=== PATIENT | male | born 1980 | race African-American/Black ===

== ENCOUNTER 2016-08-15 02:11 | Emergency (ER) | payer BC ==
[~2016-08-15 02:11] MED LIST: CLEOCIN HCL300 MG PO; HUMALOG100 UNIT/1 SQ; HYDROCODONE 5MG/5 MG PO; LANTUS100 UNITS/ SQ; PERIDEX15 ML PO; PRAVACHOL20 MG PO; TYLENOL DPS325 MG PO; ZESTRIL DPS5 MG PO
--- NOTE | 2016-08-15 19:18 | ER ---
ADMIT: 08/15/2016 RM/LOC: ER [facility] MR#: [id number] [address] [id number] [place]HA BOYCE [address] [place] [address] Emergency Room Report SEX: M AGE: 36 : 1980 DATE: 08/15/2016 HISTORY OF PRESENT ILLNESS: The patient is a 36-year-old male, who was brought by Law Enforcement for medical clearance to [facility]. Allegedly, the patient was EtOH intoxicated, alcohol intoxicated. The patient denies any car trauma, car accident, any altercation, or other signs of trauma or co- ingestion of any medications or drug use. The patient denies any pain or discomfort and was alert and oriented to person, place, and time. Law Enforcement also denied any accident or trauma. PHYSICAL EXAMINATION: VITAL SIGNS: The patient has stable vitals. HEENT: Head and neck, and the rest of the body is atraumatic. Trachea midline. NEURO: Normal. CHEST: Clear bilaterally. ABDOMEN: Soft. EXTREMITIES: There are no signs of trauma in extremities and range of motion is normal in all extremities. The patient ambulates without difficulty and is stable to be discharged, medically cleared to [facility]. oRe Cross MD/ anita JOB #: [id number] CC: Roe Cross MD, Attending Physician Jass Meza MD, Family Physician
== END 2016-08-15 02:40 ==
LOC: ER 02:11
DX: Z02.89 Encounter for other administrative examinations (principal); F10.129 Alcohol abuse with intoxication, unspecified